=== PATIENT | female | born 1990 | race Two or more races ===

== ENCOUNTER → 2020-06-21 | Outpatient (CLI) | payer OTHER ==
[~2020-06-21] MED LIST: DOCU100C28 PO; FERR325T14 PO; OXYC-325 PO
== END | disposition home or self-care (01) ==
LOC: MERGE 13:42 → LAB 13:42
PROVIDERS: ATTEND Obstetrics & Gynecology
DX: Z01.818 Encounter for other preprocedural examination (principal); Z11.59 Encounter for screening for other viral diseases; N83.292 Other ovarian cyst, left side
CPT/HCPCS: U0003-CS

== ENCOUNTER 2020-06-24 07:20 | Day surgery (SDC) | payer OTHER ==
[~2020-06-24] VITALS: Ht 162.6 cm; Wt 77.0 kg
[~2020-06-24 07:20] MED LIST changes: +HYDROmorphone 2 MG/ML VIAL IV PRN; +IV RINGERS,LACTATED 1000ML 1,000 ML IV SCH; +LIDOCAINE 1% PF 2 ML VIAL. ID PRN; +MORPHINE SULFATE 2 MG/ML VIAL. IV PRN; +ONDANSETRON PF 4 MG/2 ML VIAL. IV PRN; -OXYC-325 PO; +PROCHLORPERAZINE 10 MG/2 ML VIAL. IV PRN; +ceFAZolin SODIUM IV Push 1 GM VIAL. IVP ONE; +fentaNYL PF VIAL 100 MCG/2 ML VIAL IV PRN
[2020-06-24] MEDS ORDERED: SEVOFLURANE 31 TO 60 MINUTES. IH ONE (08:23)
[2020-06-24] MEDS ORDERED: DEXAMETHASONE SOD PHOS 4 MG/ML VIAL ONE (08:23)
[2020-06-24] MEDS ORDERED: KETOROLAC 30 MG/ML VIAL. ONE (08:23)
[2020-06-24] MEDS ORDERED: fentaNYL PF VIAL 100 MCG/2 ML VIAL ONE (08:23)
[2020-06-24] MEDS ORDERED: ONDANSETRON PF 4 MG/2 ML VIAL. ONE (08:23)
[2020-06-24] MEDS ORDERED: PROPOFOL 10 MG/ML (20ML) VIAL. IV ONE (08:23)
[2020-06-24] MEDS ORDERED: LIDOCAINE 2% PF 5 ML VIAL. ONE (08:23)
[2020-06-24] MEDS ORDERED: ROCURONIUM 50 MG/5 ML VIAL. ONE (08:23)
[2020-06-24] MEDS ORDERED: SURGICEL HEMOSTAT 4X8 EACH. ONE (08:49)
[2020-06-24] MEDS ORDERED: BUPIVACAINE-EPI 0.25%-1:200000 MPF 30 ML VIAL. ONE (08:49)
[2020-06-24] MEDS ORDERED: FAMOTIDINE 20 MG/2 ML VIAL ONE (08:58)
[2020-06-24] MEDS ORDERED: GLYCOPYRROLATE 1 MG/5 ML VIAL. ONE (09:44)
[2020-06-24] MEDS ORDERED: NEOSTIGMINE METHYLSULFATE 5 MG/5 ML SYRINGE. ONE (09:45)
--- NOTE | 2020-06-24 10:15 | PDOC ---
BRIEF OPERATIVE NOTE Date: Jun 24, 2020 Pre-Op Diagnosis SHAWNEE Cyst Post-Op Diagnosis Dermoid Cyst Procedure Performed [facility] Surgeon Dr. Randhawa Coremaker Experimental Heating Worker: Brandon Anesthesia Type: General Blood Loss 5 ml Specimens Obtained Left fallopian tube and SHAWNEE Findings nml size uterus, adhesions Left fallopian tube to abd wall, omental adhesions, SHAWNEE dermoid cyst; nml Right fallopian tube and ROV Complications none Operative Note see dictation LUI RANDHAWA Jr, MD Jun 24, 2020 10:15
--- NOTE | 2020-06-24 10:17 | DISCH ---
DISCHARGE INSTRUCTIONS Condition on Discharge Condition on Discharge: Stable Activity After Discharge Activity Instructions for Disc: Activity as tolerated Lifting Instructions after Dis: No heavy lifting, No pulling or pushing, Do not lift >10 pounds Exercise Instruction after Dis: Progress as tolerated Driving Instructions after Dis: Do not drive today Weight Bearing Status after Di: As tolerated Diet after Discharge Diet after Discharge: Regular Diet Texture: Regular Wound Incision Care Wound/Incision Care: No wound care needed Checks after Discharge Checks after discharge: Check your Temp as needed Contacting the [facility] after DC Call your doctor for: If your condition worsens Follow-Up Follow up with: Dr. Williamson in 1 wk Treatment/Equipment after DC Adaptive Equipment Issued: None LUI WILLIAMSON Jr, MD Jun 24, 2020 10:17
[2020-06-24] MEDS ORDERED: oxyCODONE/APAP 5/325 1 TAB TABLET PO ONE ×2 (10:30)
[2020-06-24] MEDS ORDERED: OXYC-325 PO (10:33)
[2020-06-24 11:00] VITALS: BP 129/70
--- NOTE | 2020-06-24 12:38 | OP ---
DATE OF SURGERY: 06/24/2020 PREOPERATIVE DIAGNOSIS: Left ovarian cyst. POSTOPERATIVE DIAGNOSIS: Dermoid cyst. PROCEDURE: Laparoscopic LSO. SURGEON: Lui Randhawa MD. DESKTOP ADMINISTRATOR: Brandon. ANESTHESIA: GETA. ESTIMATED BLOOD LOSS: 5 mL COMPLICATIONS: None. FINDINGS: Normal size uterus, adhesions to the left fallopian tube to the abdominal wall, omental adhesions, left ovarian dermoid cyst, normal right fallopian tube and right ovary. SUMMARY: A 30-year-old female who had unresolving left ovarian cyst with pelvic pain requiring surgical management. The patient was counseled on risks, benefits and expectations of laparoscopic left ovarian cystectomy with possibility of left salpingo-oophorectomy, risks, benefits and expectations and voiced clear understanding to proceed. DESCRIPTION OF PROCEDURE: The patient was taken to surgery suite and placed in dorsal lithotomy position. She was prepped with Betadine solution for vaginal prep and ChloraPrep for abdominal prep. After adequate anesthesia, weighted speculum was placed vaginally. Anterior lip of the cervix grasped with single tooth tenaculum. Jay uterine manipulator was then placed. Weighted speculum was removed. Attention was now placed on the abdomen. Small transverse skin incision was made just below the umbilicus with scalpel. The Veress needle was then placed through the infraumbilical incision site. The abdomen was allowed to insufflate up to 1.5 liters of CO2 gas. The Veress needle was then removed. 5 mm trocar was placed. The scope was positioned. Uterus appeared normal size. There were omental adhesions as well as adhesions of the left fallopian tube to the abdominal wall. Left ovary was enlarged about 5 cm size and looked more of a complex with possible solid components. The right fallopian tube and right ovary appeared normal. Two additional incisions were made with a scalpel in the left lower quadrant in which a 5 mm trocar was placed as well as an 11 mm trocar. With the aid of EnSeal device, the portion of the left fallopian tube that was adhesed to the abdominal wall was fulgurated and from the abdominal wall. We then used the EndoShears to incise into the left ovarian cyst, which elicited both fluid as well as solid material consisting of adipose tissue and hair follicles. Therefore, it was determined that this was a dermoid cyst and decision was made to remove the left fallopian tube and ovary entirely. With the aid of the EnSeal device, the left infundibulopelvic ligament was coagulated and dissected. The left uteroovarian pedicle was coagulated and dissected. The left fallopian tube and ovary were removed with aid of Endobag. The left adnexa was hemostatic. This was verified with suction irrigation. A small amount of normal saline was left in posterior cul-de-sac. The trocars were removed under direct visualization. The abdomen was allowed to deflate as much as possible along with mechanical manipulation. The 11 mm port site was closed at the fascial layer using 2-0 Vicryl suture in a [id number] manner. The 3 skin incisions were closed at the skin level using 4-0 Vicryl suture in a subcuticular manner. A 0.25% Marcaine with epinephrine was injected at each incision site. The uterine acorn manipulator and single tooth tenaculum were removed. The patient tolerated the procedure well and was taken to recovery room in stable condition. Sponge and needle counts were correct x 3. LUI RANDHAWA MD DR: ARNAUD/ashutosh JOB#: [id number] / [id number]
--- NOTE | 2020-06-25 17:07 | PATHOLOGY ---
[facility] Accession Number: [id number] . 01 Material submitted: . ovary - LEFT FALLOPIAN TUBE AND LEFT OVARY. Modifiers: left . 01 Clinical history: . Left ovarian cyst . 02 Diagnosis: Fallopian tube and ovary, left salpingo-oophorectomy: - Mature c ystic teratoma (dermoid cyst) of ovary, with focal erosion of cyst lining and foreign body granulomatous reaction. - Several cystic follicles of ovary. - Ovarian capsular adhesions, focal. - Fallopian tube showing no significant pathologic abnormalities. . (JPM:mm; 06/25/2020) [facility] 06/25/2020 1656 Local . 02 Comment: There is no evidence of malignancy. . (JPM:mml; 06/25/2020) . 02 Electronically signed: . Jose Luis Prado MD, Pathologist NPI- [id number] . 01 Gross description: . The specimen is received in formalin, labeled "Elisha Stiles, left fallopian tube and left ovary". Received is a 23 g adnexal specimen consisting of a fimbriated fallopian tube measuring 2.5 cm in length by 0.7 cm in diameter which is adhesed to a 5.0 x 3.6 x 2.5 cm cystic ovary. Sectioning through the fallopian tube reveals a patent lumen. Sectioning through the ovary reveals a unilocular cystic structure measuring 3.4 cm filled with pale-sierra friable material and hair. The remaining cut surfaces display pale sierra, normal ovarian stroma, as well as several additional cystic structures ranging in size from 0.3 to 0.7 cm filled with clear fluid. The specimen is submitted representatively in cassettes A1 through A4. (CAA; 06/24/2020) QA/QAC 06/25/[address] [place] [address] . 02 Pathologist provided ICD-10: D27.1 . 02 CPT . 610433 Specimen Comment: A courtesy copy of this report has been sent to [phone] Specimen Comment: Report sent to Performed at: [address] [facility], [place] [id number] MD Petey Johnson MD Phone: [phone] Performed at: 02 [facility] [address] [place] [id number] MD Jose Luis Prado MD Phone: [phone]
== END 2020-06-24 11:30 | disposition home or self-care (01) ==
LOC: SURG 07:20
PROVIDERS: ATTEND Obstetrics & Gynecology
DX: D27.1 Benign neoplasm of left ovary (principal); K66.0 Peritoneal adhesions (postprocedural) (postinfection); Z79.899 Other long term (current) drug therapy
CPT/HCPCS: 58661; 81025; J0690; J1100; J1885; J2405; J2704; J2710; J3010; J3490; 88307; A7015; J7030; J7120

== ENCOUNTER → 2021-01-05 | Outpatient (CLI) | payer OTHER ==
[~2021-01-05] MED LIST changes: +HYDR-2761 PO; -HYDROmorphone 2 MG/ML VIAL IV PRN; -IV RINGERS,LACTATED 1000ML 1,000 ML IV SCH; -LIDOCAINE 1% PF 2 ML VIAL. ID PRN; -MORPHINE SULFATE 2 MG/ML VIAL. IV PRN; -ONDANSETRON PF 4 MG/2 ML VIAL. IV PRN; +OXYC-325 PO; -PROCHLORPERAZINE 10 MG/2 ML VIAL. IV PRN; -ceFAZolin SODIUM IV Push 1 GM VIAL. IVP ONE; -fentaNYL PF VIAL 100 MCG/2 ML VIAL IV PRN
== END ==
LOC: LAB 11:54 → MERGE 11:54
PROVIDERS: ATTEND Obstetrics & Gynecology
DX: Z01.812 Encounter for preprocedural laboratory examination (principal); Z20.822 Contact with and (suspected) exposure to COVID-19
CPT/HCPCS: U0003

== ENCOUNTER 2021-01-06 20:59 | Emergency (ER) | payer OTHER ==
[~2021-01-06] VITALS: Ht 162.6 cm; Wt 81.1 kg
[~2021-01-06 20:59] MED LIST changes: -HYDR-2761 PO
[2021-01-06] MEDS ORDERED: MORPHINE SULFATE 10 MG/ML VIAL. IM ONE (23:00)
--- NOTE | 2021-01-06 23:04 | PHYS DOC ---
Past Medical History Past Medical History: Other Additional Past Medical Histor: TUMOR Past Surgical History: No Surgical History Smoking Status: Never Smoker Alcohol Use: None General Adult EDM: Chief Complaint: ABDOMINAL PAIN HPI: HPI: Patient is a 30 year old female presenting to the ED today complaining of moderate pain to the right labia from a Bartholin cyst she has had for 3 months. Patient states she has an appointment with Dr.Peghee ISAAC tomorrow for a procedure to remove it. Patient states she does not have anything at home for pain. medical secretary teacher interpreted for [place] Review of Systems: Review of Systems: Constitutional: Denies fever or chills. [] GI: Denies abdominal pain, nausea, vomiting, bloody stools or diarrhea. [] Female : Reports right labia Bartholin cyst : Denies dysuria. [] Musculoskeletal: Denies back pain or joint pain. [] Integument: Denies rash. [] Neurologic: Denies headache, focal weakness or sensory changes. [] Psychiatric: Denies depression or anxiety. [] Heart Score: Risk Factors: Risk Factors: DM, Current or recent (<one month) smoker, HTN, HLP, family history of CAD, obesity. Risk Scores: Score 0 - 3: 2.5% MACE over next 6 weeks - Discharge Home Score 4 - 6: 20.3% MACE over next 6 weeks - Admit for Clinical Observation Score 7 - 10: 72.7% MACE over next 6 weeks - Early Invasive Strategies Current Medications: Current Medications Medications (Trade) Dose Ordered Sig/[facility] Start Time Stop Time Status Last Admin Dose Admin Morphine Sulfate (Morphine Sulfate) 5 mg 1X ONCE 01/06/21 23:00 01/06/21 23:01 Allergies: Allergies: Allergies Coded Allergies Type Severity Reaction Last Updated Verified No Known Drug Allergies 06/22/20 No Physical Exam: PE: Constitutional: Well developed, well nourished, no acute distress, non-toxic appearance. [] Abdomen: Bowel sounds normal, soft, no tenderness, no masses, no pulsatile masses. [] Skin: Warm, dry, no erythema, no rash. [] Female : Vaginal exam difficult due to pain swelling noted on the right labia majora Back: No tenderness, no CVA tenderness. [] Extremities: No tenderness, no cyanosis, no clubbing, ROM intact, no edema. [] Neurologic: Alert and oriented X 3, normal motor function, normal sensory function, no focal deficits noted. [] Psychologic: Affect normal, judgement normal, mood normal. [] Current Patient Data: Vital Signs: Vital Signs Date Time Temp Pulse Resp B/P (MAP) Pulse Ox O2 Delivery O2 Flow Rate FiO2 01/06/21 21:20 126 22 126/80 (95) 97 Room Air EKG: EKG: [] Radiology/Procedures: Radiology/Procedures: [] Course & Med Decision Making: Course & Med Decision Making Pertinent Labs and Imaging studies reviewed. (See chart for details) This is a 30-year-old female patient who presented to the ED today with pain to the right labia due to Bartholin cyst. She has an appointment with the [facility] tomorrow for procedure to remove it. She was given pain relief in the ED When it was time to discharge patient she started walking humped over due to pain. [id number] Randhawa he requested we D/c her home and she can f/u with him tomorrow at 1 pm as scheduled Dragon Disclaimer: Onesimo Disclaimer: This electronic medical record was generated, in whole or in part, using a voice recognition dictation system. Departure Departure Impression: Primary Impression: Bartholin cyst Disposition: 01 DC HOME SELF CARE/HOMELESS Condition: STABLE Referrals: NO PCP (PCP) LUI RANDHAWA Jr, MD follow up tomorrow Patient Instructions: Bartholin's Cyst or Abscess Additional Instructions: Please follow-up with tomorrow for your procedure. Scripts Hydrocodone Bit/Acetaminophen (HYDROCODONE-APAP 5-325 ) 1 Tab Tablet 1 TAB PO PRN Q6HRS PRN for PAIN, #10 TAB 0 Refills Prov: DENEEN DILLON APRN 01/06/21 DENEEN DILLON APRN Jan 06, 2021 23:04
[2021-01-06 23:45] VITALS: BP 118/69
[2021-01-06] MEDS ORDERED: HYDR-2761 PO (23:59)
== END 2021-01-06 23:50 | disposition home or self-care (01) ==
LOC: ER 20:59
DX: N75.0 Cyst of Bartholin's gland (principal)
CPT/HCPCS: 96372; 99283; J2270

== ENCOUNTER 2021-01-07 12:13 | Day surgery (SDC) | payer OTHER ==
[~2021-01-07] VITALS: Ht 162.6 cm; Wt 85.0 kg
[~2021-01-07 12:13] MED LIST changes: +DEXAMETHASONE SOD PHOS 4 MG/ML VIAL ONE; +HYDR-2761 PO; +HYDROmorphone 2 MG/ML VIAL IVP PRN; +IV RINGERS,LACTATED 1000ML 1,000 ML IV SCH; +LIDOCAINE 2% PF 5 ML VIAL. ONE; +MIDAZOLAM HCL/PF 2 MG/2 ML VIAL. ONE; +MORPHINE SULFATE 2 MG/ML VIAL. IVP PRN; +ONDANSETRON PF 4 MG/2 ML VIAL. ONE; +PROCHLORPERAZINE 10 MG/2 ML VIAL. IVP PRN; +PROPOFOL 10 MG/ML (20ML) VIAL. IV ONE; +SEVOFLURANE 31 TO 60 MINUTES. IH ONE; +fentaNYL PF VIAL 100 MCG/2 ML VIAL IVP PRN; +fentaNYL PF VIAL 100 MCG/2 ML VIAL ONE
[2021-01-07] MEDS ORDERED: SILVER NITRATE STICK TP ONE (12:44)
[2021-01-07] MEDS: fentaNYL PF VIAL 100 MCG/2 ML VIAL IVP PRN ×4 (13:28→15:09)
[2021-01-07] MEDS ORDERED: BUPIVACAINE-EPI 0.5% 30 ML VIAL KIT. ONE (13:47)
--- NOTE | 2021-01-07 14:24 | PDOC ---
BRIEF OPERATIVE NOTE Date: Jan 07, 2021 Pre-Op Diagnosis Right Bartholin Duct Cyst Post-Op Diagnosis Same Procedure Performed Marsupialization Surgeon Dr. Randhawa Anesthesia Type: General Blood Loss 5 ml Specimens Obtained none Findings Right Bartholin duct cyst 4 cm size Complications none Operative Note see dictation LUI RANDHAWA Jr, MD Jan 07, 2021 14:24
--- NOTE | 2021-01-07 14:26 | DISCH ---
DISCHARGE INSTRUCTIONS Condition on Discharge Condition on Discharge: Stable Activity After Discharge Activity Instructions for Disc: Activity as tolerated Lifting Instructions after Dis: No heavy lifting, No pulling or pushing, Do not lift >10 pounds Exercise Instruction after Dis: Progress as tolerated Driving Instructions after Dis: Do not drive today Weight Bearing Status after Di: As tolerated Diet after Discharge Diet after Discharge: Regular Diet Texture: Regular Wound Incision Care Wound/Incision Care: No wound care needed Checks after Discharge Checks after discharge: Check your Temp as needed Contacting the [facility] after DC Call your doctor for: If your condition worsens Follow-Up Follow up with: Dr. Randhawa in 1 week; Pelvic rest x 4 weeks Treatment/Equipment after DC Adaptive Equipment Issued: None LUI RANDHAWA Jr, MD Jan 07, 2021 14:26
--- NOTE | 2021-01-07 14:50 | OP ---
DATE OF SURGERY: 01/07/2021 PREOPERATIVE DIAGNOSIS: Right Bartholin duct cyst. POSTOPERATIVE DIAGNOSES: Right Bartholin duct cyst. PROCEDURE: Marsupialization. SURGEON: Blas Randhawa MD ANESTHESIA: GETA. ESTIMATED BLOOD LOSS: 5 mL. COMPLICATIONS: None. FINDINGS: Right Bartholin duct cyst, 4 cm size. SUMMARY: The patient is a 30-year-old female with right Bartholin duct cyst, continue to enlarge with severe pain or tenderness. Counseled on marsupialization for treatment and voiced clear understanding to proceed. DESCRIPTION OF PROCEDURE: The patient was taken to surgery suite and placed in dorsal lithotomy position, was prepped with Betadine solution and draped in a sterile fashion. After adequate anesthesia, weighted speculum was placed. A 0.5% lidocaine with epinephrine was injected along the peripheral border of the Bartholin duct cyst. Vertical skin incision was made with a scalpel down to the cyst capsule, the cyst capsule was then entered sharply and drained off the purulent material. Irrigation of the area also took place, area was hemostatic. The marsupialization took place using 3-0 chromic suture in an interrupted fashion. Vaseline type gauze was placed over the wound for wound care purposes. The patient tolerated the procedure well and was taken to recovery room in stable condition. Sponge and needle count correct x 3. BLAS RANDHAWA MD DR: ARNAUD/ashutosh JOB#: [id number] / [id number]
[2021-01-07] MEDS ORDERED: fentaNYL PF VIAL 100 MCG/2 ML VIAL ONE (14:52)
[2021-01-07] MEDS ORDERED: PROCHLORPERAZINE 10 MG/2 ML VIAL. ONE (14:52)
[2021-01-07] MEDS ORDERED: oxyCODONE/APAP 5/325 1 TAB TABLET PO ONE ×2 (15:00)
[2021-01-07 15:33] VITALS: BP 119/66
== END 2021-01-07 15:55 | disposition home or self-care (01) ==
LOC: SURG 12:13 → EDUNIT# 13:00 → MERGE 13:00 → SURG 15:55
PROVIDERS: ATTEND Obstetrics & Gynecology
DX: N75.0 Cyst of Bartholin's gland (principal); K21.9 Gastro-esophageal reflux disease without esophagitis; E66.9 Obesity, unspecified; Z98.51 Tubal ligation status; Z98.890 Other specified postprocedural states; Z79.899 Other long term (current) drug therapy
CPT/HCPCS: 56440; 81025; J0690; J0780; J1100; J2250; J2405; J2704; J3010; J7120